=== PATIENT | female | born 1950 | race Two or more races ===

== ENCOUNTER 2018-07-03 19:11 | Emergency (ER) | payer OTHER ==
[~2018-07-03] VITALS: Ht 152.4 cm; Wt 72.6 kg
[2018-07-03] MEDS ORDERED: cloNIDine HCL 0.1 MG TAB PO ONE (23:15)
[2018-07-04] MEDS ORDERED: TETANUS-DIPTH-ACEL PERTUSSIS 0.5ML SYRG IM ONE
[2018-07-04 01:38] VITALS: BP 109/70
== END 2018-07-04 05:36 | disposition home or self-care (01) ==
LOC: EDBD 19:11 → ER 19:17
DX: S01.112A Laceration without foreign body of left eyelid and periocular area, initial encounter (principal); W20.8XXA Other cause of strike by thrown, projected or falling object, initial encounter; Y93.89 Activity, other specified; Y92.811 Bus as the place of occurrence of the external cause; Y99.8 Other external cause status
CPT/HCPCS: 70450; 70486; 90471; 90715; 94761